=== PATIENT | female | born 1970 | race Caucasian/White ===

== ENCOUNTER 2016-06-02 03:52 | Emergency (ER) | payer SELFPAY ==
[~2016-06-02] VITALS: Ht 157.5 cm; Wt 68.0 kg
[2016-06-02] MEDS ORDERED: ALBUTEROL FS 2.5 MG/0.5 ML VIAL.NEB ONE (04:32)
[2016-06-02] MEDS ORDERED: IPRATROPIUM NEB FS 0.5 MG/2.5 ML AMPUL.NEB ONE (04:32)
[2016-06-02] MEDS ORDERED: ALBUTEROL FS 2.5 MG/0.5 ML VIAL.NEB NEB ONE (05:00)
[2016-06-02] MEDS ORDERED: IPRATROPIUM NEB FS 0.5 MG/2.5 ML AMPUL.NEB NEB ONE (05:00)
[2016-06-02 05:50] VITALS: BP 121/91
== END 2016-06-02 05:50 | disposition home or self-care (01) ==
LOC: ER 03:57
DX: J98.01 Acute bronchospasm (principal); I10 Essential (primary) hypertension; J45.909 Unspecified asthma, uncomplicated; F41.9 Anxiety disorder, unspecified; F17.200 Nicotine dependence, unspecified, uncomplicated; F10.10 Alcohol abuse, uncomplicated
CPT/HCPCS: 71010; 94640 ×2; 99284; A4606; Z7610

== ENCOUNTER 2017-04-10 05:23 | Emergency (ER) | payer MEDICAID, OTHER ==
[~2017-04-10] VITALS: Ht 157.5 cm; Wt 68.0 kg
[2017-04-10 05:23] VITALS: BP 132/81
--- NOTE | 2017-04-10 05:39 | NUR ---
CALLED IN WAITING ROOM NO ANSWER
--- NOTE | 2017-04-10 05:46 | NUR ---
CALLED AGAIN NOT IN WAITING ROOM
--- NOTE | 2017-04-10 06:11 | NUR ---
PATIENT RECEIVED FROM STREETS C/O "BLACK STUFF COMING OUT OF MY FINGERNAILS AND CUTS ON FINGERS/TOES". NO C/O PAIN OR SOB AT THIS TIME. A/O X4 ABLE TO MAKE NEEDS KNOWN. WILL CONTINUE TO MONITOR FOR ANY CHANGES
[2017-04-10] MEDS ORDERED: BACI/NEOM/POLY B OINT PKT 1 UDPKT PACKET ONE (06:20)
[2017-04-10] MEDS ORDERED: BACITRACIN/POLYMYXIN B 15 GM TUBE TP SCH (06:30)
== END 2017-04-10 06:27 | disposition home or self-care (01) ==
LOC: ER 05:26
DX: S61.019A Laceration without foreign body of unspecified thumb without damage to nail, initial encounter (principal); I10 Essential (primary) hypertension; J45.909 Unspecified asthma, uncomplicated; F41.9 Anxiety disorder, unspecified; F17.200 Nicotine dependence, unspecified, uncomplicated; X58.XXXA Exposure to other specified factors, initial encounter; Y93.89 Activity, other specified; Y92.89 Other specified places as the place of occurrence of the external cause; Y99.8 Other external cause status
CPT/HCPCS: 99281; A4606; Z7610; Z7502

== ENCOUNTER 2019-07-24 20:28 | Emergency (ER) | payer MEDICAID ==
[~2019-07-24] VITALS: Ht 160 cm; Wt 73.9 kg
[2019-07-24 20:28] VITALS: BP 139/76
== END 2019-07-24 21:59 | disposition left against medical advice (07) ==
LOC: ER 20:33
DX: F41.9 Anxiety disorder, unspecified (principal); F15.10 Other stimulant abuse, uncomplicated; J45.909 Unspecified asthma, uncomplicated; F31.9 Bipolar disorder, unspecified; F20.9 Schizophrenia, unspecified; F17.200 Nicotine dependence, unspecified, uncomplicated